=== PATIENT | female | born 1965 | race Caucasian/White ===

== ENCOUNTER 2020-03-24 10:12 | Outpatient (CLI) | payer OTHER ==
[~2020-03-24] VITALS: Ht 147.3 cm; Wt 121.0 kg
[2020-03-24] VITALS (8 sets, daily range): BP systolic 94–131; BP diastolic 56–80
[2020-03-24] MEDS ORDERED: ACETAMINOPHEN TAB 650MG DOSE (2X325MG) PO ONE (10:30)
[2020-03-24] MEDS ORDERED: methylPREDNISolone INJ 125 MG/2 ML VIAL (J2930) IV ONE (10:30)
[2020-03-24] MEDS ORDERED: OCRELIZUMAB 600 MG in NS 500 ML IV ONE (10:30)
[2020-03-24] MEDS ORDERED: diphenhydrAMINE 25MG CAP PO ONE (10:30)
== END 2020-03-24 15:35 | disposition home or self-care (01) ==
LOC: M INFU 10:12
PROVIDERS: ATTEND Psychiatry & Neurology Neurology
DX: G35 Multiple sclerosis (principal)
CPT/HCPCS: 96375; 96413; 96415; J2930

== ENCOUNTER 2020-09-22 08:57 | Outpatient (CLI) | payer OTHER ==
[~2020-09-22] VITALS: Ht 149.9 cm; Wt 120.9 kg
[2020-09-22] VITALS (8 sets, daily range): BP systolic 106–128; BP diastolic 53–78
[2020-09-22] MEDS ORDERED: methylPREDNISolone 125MG 2ML VIAL IV ONE (09:00)
[2020-09-22] MEDS ORDERED: ACETAMINOPHEN TAB 650MG DOSE (2X325MG) PO ONE (09:00)
[2020-09-22] MEDS ORDERED: OCRELIZUMAB 600 MG in NS 500 ML IV ONE (09:00)
[2020-09-22] MEDS ORDERED: diphenhydrAMINE 25MG CAP PO ONE (09:00)
[2020-09-22] MEDS ORDERED: PREG100CA PO (09:09)
[2020-09-22] MEDS ORDERED: KEPP1TAB PO (09:09)
[2020-09-22] MEDS ORDERED: XARE15TA PO (09:09)
[2020-09-22] MEDS ORDERED: OMEP40CA97 PO (09:09)
[2020-09-22] MEDS ORDERED: LYRI200C PO (09:09)
== END 2020-09-22 14:20 | disposition home or self-care (01) ==
LOC: M INFU 08:57
PROVIDERS: ATTEND Psychiatry & Neurology Neurology
DX: G35 Multiple sclerosis (principal)
CPT/HCPCS: 96365; 96366; 96375; J2930

== ENCOUNTER 2021-03-23 08:48 | Outpatient (CLI) | payer OTHER ==
[2021-03-23] VITALS (7 sets, daily range): BP systolic 99–128; BP diastolic 60–77
[~2021-03-23] VITALS: Ht 160 cm; Wt 120.9 kg
[~2021-03-23 08:48] MED LIST: KEPP1TAB PO; LYRI200C PO; OMEP40CA4 PO; PREG100CA PO; XARE15TA PO
[2021-03-23] MEDS ORDERED: ACETAMINOPHEN TAB 650MG DOSE (2X325MG) PO ONE (09:00)
[2021-03-23] MEDS ORDERED: OCRELIZUMAB 600 MG in NS 500 ML IV ONE (09:00)
[2021-03-23] MEDS ORDERED: diphenhydrAMINE 25MG CAP PO ONE (09:00)
[2021-03-23] MEDS ORDERED: methylPREDNISolone 125MG 2ML VIAL IV ONE (09:00)
[2021-03-23] MEDS ORDERED: APAP325T4 PO (10:30)
[2021-03-23] MEDS ORDERED: CYMB60CA3 PO (10:31)
[2021-03-23] MEDS ORDERED: ATOR1TAB19 PO (10:31)
[2021-03-23] MEDS ORDERED: VITMTA PO (10:36)
[2021-03-23] MEDS ORDERED: OCRE300I IV (10:36)
[2021-03-23] MEDS ORDERED: LISI40TA4 PO (10:36)
[2021-03-23] MEDS ORDERED: LEVO50TA5 PO (10:36)
[2021-03-23] MEDS ORDERED: PREDPOW34 PO (10:36)
[2021-03-23] MEDS ORDERED: NITR4TASL SL (10:36)
[2021-03-23] MEDS ORDERED: FURO20TA2 PO (10:36)
[2021-03-23] MEDS ORDERED: SUMA100T2 PO (10:36)
[2021-03-23] MEDS ORDERED: OXYB15TA14 PO (10:36)
[2021-08-05] MEDS ORDERED: NIAC500C11 PO (13:21)
== END 2021-08-05 13:40 | disposition home or self-care (01) ==
LOC: M INFU 08:48
PROVIDERS: ATTEND Psychiatry & Neurology Neurology
DX: G35 Multiple sclerosis (principal)
CPT/HCPCS: 96365; 96366; 96375; J2930

== ENCOUNTER → 2021-08-05 | Outpatient (CLI) | payer OTHER ==
[~2021-08-05] VITALS: Ht 160 cm; Wt 120.0 kg
[~2021-08-05] MED LIST changes: +APAP325T4 PO; +ATOR1TAB19 PO; +CYMB60CA3 PO; +FURO20TA2 PO; +LEVO50TA5 PO; +LISI40TA4 PO; +NIAC500C11 PO; +NITR4TASL SL; +OCRE300I IV; +OXYB15TA14 PO; +PREDPOW34 PO; +SUMA100T2 PO; +VITMTA PO; +methylPREDNISolone 1,000 MG, VIAL MATE ADAPTER 1 EACH in NS 250 ML IV ONE
[2021-08-05 13:30] VITALS: BP 146/83
== END ==
LOC: M INFU 11:56
PROVIDERS: ATTEND Psychiatry & Neurology Neurology
DX: G35 Multiple sclerosis (principal)
CPT/HCPCS: 96365; J2930

== ENCOUNTER 2021-08-06 12:01 | Outpatient (CLI) | payer OTHER ==
[~2021-08-06] VITALS: Ht 149.9 cm; Wt 72.7 kg
[~2021-08-06 12:01] MED LIST changes: -methylPREDNISolone 1,000 MG, VIAL MATE ADAPTER 1 EACH in NS 250 ML IV ONE
[2021-08-06 12:22] VITALS: BP 157/85
[2021-08-06] MEDS ORDERED: methylPREDNISolone 1,000 MG, VIAL MATE ADAPTER 1 EACH in NS 250 ML IV ONE (12:30)
[2021-08-06 13:41] VITALS: BP 126/70
== END 2021-08-06 13:45 | disposition home or self-care (01) ==
LOC: M INFU 12:01
PROVIDERS: ATTEND Psychiatry & Neurology Neurology
DX: G35 Multiple sclerosis (principal)
CPT/HCPCS: 96365; J2930

== ENCOUNTER 2021-08-07 11:58 | Outpatient (CLI) | payer OTHER ==
[~2021-08-07] VITALS: Ht 160 cm; Wt 120.0 kg
[2021-08-07 12:50] VITALS: BP 126/68
[2021-08-07] MEDS ORDERED: methylPREDNISolone 1,000 MG, VIAL MATE ADAPTER 1 EACH in NS 250 ML IV ONE (13:00)
[2021-08-07 13:30] VITALS: BP 125/92
== END 2021-08-07 13:45 | disposition home or self-care (01) ==
LOC: M INFU 11:58
PROVIDERS: ATTEND Psychiatry & Neurology Neurology
DX: G35 Multiple sclerosis (principal)
CPT/HCPCS: 96365; J2930

== ENCOUNTER 2021-09-21 08:34 | Outpatient (CLI) | payer OTHER ==
[~2021-09-21] VITALS: Ht 149.9 cm; Wt 118.1 kg
[~2021-09-21 08:34] MED LIST changes: +ACETAMINOPHEN TAB 650MG DOSE (2X325MG) PO ONE; -CYMB60CA3 PO; +CYMB60CA4 PO; +OCRELIZUMAB 600 MG in NS 500 ML IV ONE; +diphenhydrAMINE 25MG CAP PO ONE; +methylPREDNISolone 125MG 2ML VIAL IV ONE
[2021-09-21 08:40] VITALS: BP 143/92
[2021-09-21 09:16] VITALS: BP 143/92
[2021-09-21 10:00] VITALS: BP 141/82
[2021-09-21 10:30] VITALS: BP 137/75
[2021-09-21 11:00] VITALS: BP 130/72
[2021-09-21 12:00] VITALS: BP 129/66
== END 2021-09-21 13:40 | disposition home or self-care (01) ==
LOC: M INFU 08:34
PROVIDERS: ATTEND Psychiatry & Neurology Neurology
DX: G35 Multiple sclerosis (principal)
CPT/HCPCS: 96365; 96366; 96375; J2930

== ENCOUNTER 2022-03-22 08:21 | Outpatient (CLI) | payer OTHER ==
[~2022-03-22] VITALS: Ht 149.9 cm; Wt 118.2 kg
[2022-03-22 08:25] VITALS: BP 126/79
[2022-03-22 09:56] VITALS: BP 112/77
[2022-03-22 10:28] VITALS: BP 114/62
[2022-03-22 11:00] VITALS: BP 122/70
[2022-03-22 12:30] VITALS: BP 120/74
[2022-03-22 13:30] VITALS: BP 139/86
== END 2022-03-22 13:30 | disposition home or self-care (01) ==
LOC: M INFU 08:21
PROVIDERS: ATTEND Psychiatry & Neurology Neurology
DX: G35 Multiple sclerosis (principal)
CPT/HCPCS: 96365; 96366; 96375; J2930

== ENCOUNTER 2022-09-22 08:09 | Outpatient (CLI) | payer OTHER ==
[~2022-09-22] VITALS: Ht 149.9 cm; Wt 115.9 kg
[2022-09-22] VITALS (7 sets, daily range): BP systolic 109–138; BP diastolic 60–69
== END 2022-09-22 13:45 | disposition home or self-care (01) ==
LOC: M INFU 08:09
PROVIDERS: ATTEND Psychiatry & Neurology Neurology
DX: G35 Multiple sclerosis (principal)
CPT/HCPCS: 96365; 96366; J2930

== ENCOUNTER 2023-02-21 10:15 | Outpatient (CLI) | payer OTHER ==
[~2023-02-21] VITALS: Ht 149.9 cm; Wt 116.4 kg
[2023-02-21 10:15] VITALS: BP 102/57
[~2023-02-21 10:15] MED LIST changes: -ACETAMINOPHEN TAB 650MG DOSE (2X325MG) PO ONE; -OCRELIZUMAB 600 MG in NS 500 ML IV ONE; -diphenhydrAMINE 25MG CAP PO ONE; -methylPREDNISolone 125MG 2ML VIAL IV ONE
[2023-02-21] MEDS ORDERED: methylPREDNISolone 1,000 MG, VIAL MATE ADAPTER 1 EACH in NS 250 ML IV ONE (10:30)
[2023-02-21 11:40] VITALS: BP 136/60
== END 2023-02-21 11:40 | disposition home or self-care (01) ==
LOC: M INFU 10:15
PROVIDERS: ATTEND Psychiatry & Neurology Neurology
DX: G35 Multiple sclerosis (principal)
CPT/HCPCS: 96365; J2930

== ENCOUNTER 2023-02-22 11:20 | Outpatient (CLI) | payer OTHER ==
[~2023-02-22] VITALS: Ht 149.9 cm; Wt 116.0 kg
[2023-02-22] MEDS ORDERED: methylPREDNISolone 1,000 MG, VIAL MATE ADAPTER 1 EACH in NS 250 ML IV ONE (11:30)
[2023-02-22 11:33] VITALS: BP 141/75
[2023-02-22 12:35] VITALS: BP 129/71
== END 2023-02-22 12:35 | disposition home or self-care (01) ==
LOC: M INFU 11:20
PROVIDERS: ATTEND Psychiatry & Neurology Neurology
DX: G35 Multiple sclerosis (principal)
CPT/HCPCS: 96365; J2930

== ENCOUNTER 2023-02-23 10:55 | Outpatient (CLI) | payer OTHER ==
[~2023-02-23] VITALS: Ht 149.9 cm; Wt 114.0 kg
[2023-02-23 10:55] VITALS: BP 158/83
[2023-02-23] MEDS ORDERED: methylPREDNISolone 1,000 MG, VIAL MATE ADAPTER 1 EACH in NS 250 ML IV ONE (11:30)
[2023-02-23 12:00] VITALS: BP 149/82
== END 2023-02-23 12:10 | disposition home or self-care (01) ==
LOC: M INFU 10:55
PROVIDERS: ATTEND Psychiatry & Neurology Neurology
DX: G35 Multiple sclerosis (principal)
CPT/HCPCS: 96365; J2930

== ENCOUNTER 2023-03-22 08:00 | Outpatient (CLI) | payer OTHER ==
[~2023-03-22] VITALS: Ht 149.9 cm; Wt 114.0 kg
[~2023-03-22 08:00] MED LIST changes: +ACETAMINOPHEN TAB 650MG DOSE (2X325MG) PO ONE; -NIAC500C11 PO; +NIAC500C5 PO; +OCRELIZUMAB 600 MG in NS 500 ML IV ONE; +diphenhydrAMINE 25MG CAP PO ONE; +methylPREDNISolone 125MG 2ML VIAL IV ONE
[2023-03-22 08:24] VITALS: BP 123/80
[2023-03-22 13:20] VITALS: BP 132/67
== END 2023-03-22 12:56 | disposition home or self-care (01) ==
LOC: M INFU 08:00
PROVIDERS: ATTEND Psychiatry & Neurology Neurology
DX: G35 Multiple sclerosis (principal)
CPT/HCPCS: 96365; 96366; 96375; J2930

== ENCOUNTER 2023-09-22 07:51 | Outpatient (CLI) | payer OTHER ==
[~2023-09-22] VITALS: Ht 149.9 cm; Wt 115.5 kg
[~2023-09-22 07:51] MED LIST changes: -ACETAMINOPHEN TAB 650MG DOSE (2X325MG) PO ONE; -OCRELIZUMAB 600 MG in NS 500 ML IV ONE; -diphenhydrAMINE 25MG CAP PO ONE; -methylPREDNISolone 125MG 2ML VIAL IV ONE
[2023-09-22] MEDS ORDERED: OCRELIZUMAB 600 MG in NS 500 ML IV ONE (08:00)
[2023-09-22] MEDS ORDERED: diphenhydrAMINE 25MG CAP PO ONE (08:00)
[2023-09-22] MEDS ORDERED: methylPREDNISolone 125MG 2ML VIAL IV ONE (08:00)
[2023-09-22] MEDS ORDERED: ACETAMINOPHEN TAB 650MG DOSE (2X325MG) PO ONE (08:00)
[2023-09-22 08:13] VITALS: BP 131/68; TEMP 97.7; O2SAT 100
[2023-09-22 09:10] VITALS: BP 117/56; O2SAT 99
[2023-09-22 12:59] VITALS: BP 117/55; O2SAT 99
== END 2023-09-22 12:59 ==
LOC: M INFU 07:51
PROVIDERS: ATTEND Psychiatry & Neurology Neurology
DX: G35 Multiple sclerosis (principal)
CPT/HCPCS: 96365; 96366; 96375; J2930

== ENCOUNTER 2024-03-22 07:33 | Outpatient (CLI) | payer OTHER ==
[~2024-03-22] VITALS: Ht 149.9 cm; Wt 111.7 kg
[2024-03-22 08:05] VITALS: BP 117/71; O2SAT 96
[2024-03-22] MEDS: diphenhydrAMINE 25MG CAP PO ONE (08:10)
[2024-03-22] MEDS: ACETAMINOPHEN TAB 650MG DOSE (2X325MG) PO ONE (08:10)
[2024-03-22] MEDS: methylPREDNISolone 125MG 2ML VIAL IV ONE (08:19)
[2024-03-22] MEDS: OCRELIZUMAB 600 MG in NS 500 ML IV ONE (08:54)
[2024-03-22 09:30] VITALS: BP 120/70; O2SAT 95
[2024-03-22 10:00] VITALS: BP 107/53; O2SAT 96
[2024-03-22 10:30] VITALS: BP 92/50; O2SAT 96
[2024-03-22 11:00] VITALS: BP 100/66; O2SAT 95
[2024-03-22 12:55] VITALS: BP 111/57; O2SAT 97
== END 2024-03-22 13:10 | disposition home or self-care (01) ==
LOC: M INFU 07:33
PROVIDERS: ATTEND Psychiatry & Neurology Neurology
DX: G35 Multiple sclerosis (principal)
CPT/HCPCS: 96365; 96366; J2919

== ENCOUNTER → 2025-03-25 | Outpatient (CLI) | payer MEDICARE, OTHER ==
[~2025-03-25] MED LIST changes: +PREG-35 PO; -PREG100CA PO
== END ==
LOC: M CARPUL 15:03
PROVIDERS: ATTEND Internal Medicine Pulmonary Disease
DX: R09.02 Hypoxemia (principal)

== ENCOUNTER → 2025-08-02 | Outpatient (CLI) | payer MEDICARE, MEDICAID ==
[~2025-08-02] MED LIST changes: +ACET-683 PO; +ATOR40TA75 PO; +BARIUM SULFATE 700 MG TABLET As Ordered ONE; +DULO1CAP6 PO; +E-Z-PAQUE 96% w/w SUSP 176 GM BTL As Ordered ONE; +LEVE10003 PO; +LEVO75TA4 PO; +LISI40TA10 PO; -LISI40TA4 PO; +METF10004 PO; +OFAT20PE SC; +PREG150C2 PO; +VARIBAR NECTAR 40% w/v 240ML SUSP BTL As Ordered ONE; +VARIBAR PUDDING 40% w/v 230ML TUBE As Ordered ONE
== END ==
LOC: M RAD 13:11
PROVIDERS: ATTEND Internal Medicine Pulmonary Disease
DX: R13.10 Dysphagia, unspecified (principal)